=== PATIENT | male | born 1945 | race Caucasian/White ===

== ENCOUNTER 2020-06-17 13:52 | Emergency (ER) | payer OTHER ==
[~2020-06-17] VITALS: Ht 182.9 cm; Wt 99.1 kg
[~2020-06-17 13:52] MED LIST: CARDIZEM CD 18180 MG PO; FOSINOPRIL SODI10 MG PO; INSULIN; LORTAB 5/500 501 TAB PO; METFORMIN HCL1000 MG PO; ZOCOR 20MG20 MG PO
[2020-06-17 14:02] VITALS: TEMP 98.1
[2020-06-17] MEDS ORDERED: LANTUS SOLOS100 U/ML SQ (14:28)
[2020-06-17] MEDS ORDERED: NOVOLOG 100U100 U/M1 SQ ×2 (14:29→14:30)
[2020-06-17] MEDS ORDERED: GLUCOPHAGE850 MG/TAB PO (14:37)
[2020-06-17] MEDS ORDERED: NAPROSYN500 MG PO (14:57)
[2020-06-17] MEDS ORDERED: VTAMINC250TA (14:57)
[2020-06-17] MEDS ORDERED: NATURAL IRON65 MG (14:58)
[2020-06-17] MEDS ORDERED: PRAVACHOL10 MG (14:58)
[2020-06-17] MEDS ORDERED: PRINIVIL2.5 MG (14:59)
[2020-06-17 15:00] VITALS: BP 136/64; PULSE 63
[2020-06-17] MEDS ORDERED: ASPIRIN 81M81 MG/TA2 PO (15:00)
== END 2020-06-17 15:02 | disposition home or self-care (01) ==
LOC: COL.ER 13:52
DX: S61.306A Unspecified open wound of right little finger with damage to nail, initial encounter (principal); E11.9 Type 2 diabetes mellitus without complications; Z88.6 Allergy status to analgesic agent; Z79.4 Long term (current) use of insulin; Z79.82 Long term (current) use of aspirin; W27.4XXA Contact with kitchen utensil, initial encounter

== ENCOUNTER 2021-10-17 15:25 | Emergency (ER) | payer OTHER ==
[~2021-10-17] VITALS: Ht 182.9 cm; Wt 95.0 kg
[~2021-10-17 15:25] MED LIST changes: +ASPIRIN 81M81 MG/TA2 PO; +GLUCOPHAGE850 MG/TAB PO; +LANTUS SOLOS100 U/ML SQ; +NAPROSYN500 MG PO; +NATURAL IRON65 MG; +NOVOLOG 100U100 U/M1 SQ; +PRAVACHOL10 MG; +PRINIVIL2.5 MG; +VTAMINC250TA
[2021-10-17 15:26] VITALS: TEMP 98.3
[2021-10-17 19:32] LABS: BASO # 0.1 K/mm3 (0.0-0.2); BASO % 0.6 % (0.0-2.0); EOS # 0.2 K/mm3 (0.0-0.7); EOS % 1.7 % (0.0-4.0); GRAN % 78.5 % (42.2-75.2); HEMOGLOBIN 11.6 g/dl (13.5-18.0); LYMPH # 1.1 K/mm3 (1.2-3.4); LYMPH % 12.2 % (20.0-51.0); MEAN CELL VOLUME 90 fl (80.0-100.0); MEAN CORPUSCULAR HEMOGLOBIN 30 pg (27-31); MEAN CORPUSCULAR HGB CONC 33 g/dl (33.0-37.0); MEAN PLATELET VOLUME 9.9 fl (7.4-10.4); MONO # 0.6 K/mm3 (0.1-0.6); MONO % 6.8 % (1.7-9.3); PLATELET COUNT 319 K/mm3 (130-400); RED BLOOD COUNT 3.87 M/mm3 (4.20-5.60)
[2021-10-17 19:34] LABS: HEMATOCRIT 34.8 % (42.0-52.0)
[2021-10-17 19:45] LABS: ALBUMIN 3.9 gm/dL (3.4-4.8); BILIRUBIN,TOTAL 0.4 mg/dL (0.2-1.2); CALCIUM 8.9 mg/dL (8.4-10.2); CREATININE, serum 1.07 mg/dL (0.72-1.25); POTASSIUM 4.4 mmol/L (3.5-4.5); TOTAL PROTEIN 7.6 gm/dL (6.2-8.1)
[2021-10-17] MEDS ORDERED: NOVOLOG 100U100 U/M1 SQ (20:00)
[2021-10-17] MEDS ORDERED: TIAZAC120 MG PO (20:06)
[2021-10-17] MEDS ORDERED: NESINA6.25 (20:07)
[2021-10-17 20:09] VITALS: BP 166/86; PULSE 63
== END 2021-10-17 20:21 | disposition short-term general hospital (02) ==
LOC: COL.ER 15:25
PROVIDERS: Physician Assistant
DX: S22.079G Unspecified fracture of T9-T10 vertebra, subsequent encounter for fracture with delayed healing (principal); X58.XXXA Exposure to other specified factors, initial encounter
CPT/HCPCS: J7030

== ENCOUNTER 2022-08-16 08:19 | Day surgery (SDC) | payer OTHER, MEDICARE ==
[~2022-08-16] VITALS: Ht 182.9 cm; Wt 92.0 kg
[~2022-08-16 08:19] MED LIST changes: +NESINA6.25; +TIAZAC120 MG PO
[2022-08-16] MEDS ORDERED: HYGROTON 2525 MG/TAB (08:58)
[2022-08-16] MEDS ORDERED: LANTUS SOLOS100 U/ML SQ (09:02)
[2022-08-16] MEDS ORDERED: VOLTAREN GEL 1%1 TU TP (09:07)
[2022-08-16] MEDS ORDERED: GLUCOPHAGE1000 MG PO (09:09)
[2022-08-16 09:24] VITALS: BP 166/66; PULSE 70; TEMP 97.1
--- NOTE | 2022-08-16 10:07 | NUR ---
Initial visit; Patient thanked Keg Filler for offering prayer for a successful "Procedure" and a rapid and thorough recovery. Especially to be blessed with God's ever presence.
[2022-08-16 10:30] VITALS: BP 86/47; PULSE 66; TEMP 97.1
[2022-08-16 10:45] VITALS: BP 108/52; PULSE 64
[2022-08-16 10:55] VITALS: BP 128/68; PULSE 64
--- NOTE | 2022-08-16 11:10 | NUR ---
1030 RETURNS TO ROOM 2 PER CART. AWAKE, ALERT. RESP UNLABORED. AMBULATES TO RECLINER WITH STANDBY ASSIST. DENIES NAUSEA OR ABD PAIN. CALL LIGHT AT SIDE. 1045 TOLERATES JUICE AND PUDDING WITHOUT NAUSEA 1050 DISCHARGE INSTRUCTIONS REVIEWED. PATIENT VERBALIZES UNDERSTANDING. COPY PROVIDED IN DISCHARGE FOLDER 1055 DR. VELOZ HERE TO VISIT WITH PATIENT 1100 DRESSES SELF
== END 2022-08-16 11:10 | disposition home or self-care (01) ==
LOC: SDCO 08:19
DX: Z12.11 Encounter for screening for malignant neoplasm of colon (principal); K63.5 Polyp of colon; K57.30 Diverticulosis of large intestine without perforation or abscess without bleeding; I73.9 Peripheral vascular disease, unspecified; E11.9 Type 2 diabetes mellitus without complications; Z79.4 Long term (current) use of insulin; Z86.010 Personal history of colon polyps; Z80.0 Family history of malignant neoplasm of digestive organs
CPT/HCPCS: J2704; J7120

== ENCOUNTER 2023-09-16 13:35 | Inpatient (IN) | payer OTHER ==
[~2023-09-16] VITALS: Ht 182.9 cm; Wt 91.7 kg
[~2023-09-16 13:35] MED LIST changes: +GLUCOPHAGE1000 MG PO; +HYGROTON 2525 MG/TAB PO; -NATURAL IRON65 MG; +NATURAL IRON65 MG PO; +NESINA25 PO; -NESINA6.25; +NOVOLOG FLEX100 U/ML SQ; +PRAVACHOL 40MG40 MG PO; -PRAVACHOL10 MG; -PRINIVIL2.5 MG; +PRINIVIL40 MG PO; -TIAZAC120 MG PO; +TIAZAC360 MG PO; +VITAMIN C500 MG PO; +VOLTAREN GEL 1%1 TU TP; -VTAMINC250TA
[2023-09-16 14:03] LABS: BASO # 0.1 K/mm3 (0.0-0.2); BASO % 0.5 % (0.0-2.0); EOS # 0.1 K/mm3 (0.0-0.7); EOS % 0.5 % (0.0-4.0); GRAN # 12.2 K/mm3 (1.4-6.5); GRAN % 83.8 % (42.2-75.2); HEMOGLOBIN 10.4 g/dl (13.5-18.0); LYMPH # 1.2 K/mm3 (1.2-3.4); MEAN CELL VOLUME 95 fl (80.0-100.0); MEAN CORPUSCULAR HEMOGLOBIN 31 pg (27-31); MEAN CORPUSCULAR HGB CONC 33 g/dl (33.0-37.0); MONO % 6.8 % (1.7-9.3); PLATELET COUNT 285 K/mm3 (130-400); RED BLOOD COUNT 3.38 M/mm3 (4.20-5.60); REDCELL DISTRIBUTION WIDTH-CV 13.7 % (11.5-14.5)
[2023-09-16 14:21] LABS: ALBUMIN 3.5 g/dL (3.4-4.8); BILIRUBIN,TOTAL 0.3 mg/dL (0.2-1.2); CALCIUM 8.8 mg/dL (8.4-10.2); CREATININE, serum 1.79 mg/dL (0.72-1.25); MAGNESIUM 1.7 mg/dL (1.6-2.6)
[2023-09-16 14:27] LABS: POTASSIUM 5.9 mEq/L (3.5-4.5)
[2023-09-16 14:42] LABS: TROPONIN-I 0.011 ng/mL (0.00-0.033); TSH w REFLEX 2.865 uIU/mL (0.350-4.940)
[2023-09-16] MEDS ORDERED: LR 1,000 ML IV ONE (15:00)
[2023-09-16 16:21] LABS: URINE APPEARANCE CLOUDY (CLEAR/HAZY); URINE BLOOD NEGATIVE (NEGATIVE); URINE COLOR YELLOW (YELLOW); URINE GLUCOSE NEGATIVE (NEGATIVE); URINE KETONE TRACE (NEGATIVE); URINE NITRATE NEGATIVE (NEGATIVE); URINE PROTEIN(semi-quant) TRACE (NEGATIVE); URINE UROBILINOGEN 0.2 E.U/dL (0.2-1.0)
[2023-09-16] MEDS ORDERED: cefTRIAXone 1 G in Water For Injection,Sterile 20 ML IV ONE (16:30)
[2023-09-16 16:34] LABS: AMORPHOUS CRYSTAL PRESENT (NOT PRESENT); COLLECTION METHOD CLEAN CATCH; MUCOUS PRESENT (NOT PRESENT); SQUAMOUS EPITHELIAL NONE SEEN /hpf (0-10); URINE BACTERIA MODERATE /hpf (NONE SEEN); URINE RBC NONE SEEN /hpf (0-2); URINE WBC 20-50 /hpf (0-2)
[2023-09-16] MEDS ORDERED: Dextrose 50% Water 25 GM/50 ML SYRINGE IV ONE (16:45)
[2023-09-16] MEDS ORDERED: Insulin Regular Human (NovoLIN R/HumuLIN R) IV ONE (16:45)
[2023-09-16] MEDS ORDERED: Patiromer 8.4 G Oral Susp **** subs to Sodium Zirconium Cyclosilicate 10 G Oral Susp PO ONE (16:45)
[2023-09-16] MEDS ORDERED: Sodium Zirconium Cyclosilicate for Oral Susp 10 GM PACKET PO ONE (16:45)
[2023-09-16] MEDS ORDERED: DEBROX OT (16:57)
[2023-09-16 17:00] VITALS: BP_SYST 172
[2023-09-16] MEDS ORDERED: VIAGRA100 M1 PO (17:12)
[2023-09-16] MEDS ORDERED: ASPIRIN E.C. 8181 MG PO (17:28)
[2023-09-16] MEDS ORDERED: metroNIDAZOLE 100 ML IV ONE (17:30)
[2023-09-16 17:59] VITALS: BP 172/71; PULSE 74; TEMP 97.6
[2023-09-16] MEDS ORDERED: cefTRIAXone 1 G in Water For Injection,Sterile 10 ML IV SCH (18:00)
[2023-09-16] MEDS ORDERED: NS 1,000 ML IV SCH (18:00)
[2023-09-16] MEDS ORDERED: Insulin Glargine-ygfn (Lantus) SQ ONE (18:15)
[2023-09-16] MEDS ORDERED: Cefepime 1 G in Water For Injection,Sterile 10 ML IV SCH (18:15)
[2023-09-16] MEDS ORDERED: metroNIDAZOLE 100 ML IV SCH (18:15)
[2023-09-16] MEDS ORDERED: hydrALAZINE 20 MG/ML 1 ML VIAL IV PRN (18:15)
--- NOTE | 2023-09-16 18:33 | NUR ---
PT ARRIVED FROM ER AT 1800. VITALS STABLE. PT DOES NOT HAVE ANY PAIN AT THIS TIME.
[2023-09-16] MEDS ORDERED: Glucagon 1 MG VIAL IM PRN (18:45)
[2023-09-16] MEDS ORDERED: Dextrose (Glucose) 15 GM (4 x 3.75 GM) Chewable TABLET PACK PO PRN (18:45)
[2023-09-16] MEDS ORDERED: Dextrose 50% Water 25 GM/50 ML SYRINGE IV PRN (18:45)
--- NOTE | 2023-09-16 18:50 | NUR ---
PATIENT SITTING ON EDGE OF BED AT THIS TIME WITH TV OFF WITH NO FAMILY PRESENT WITH NO ACUTE DISTRESS NOTED. PATIENT ON ROOM AIR. NS INFUSING INTO RIGHT FOREARM WITH NO COMPLICATIONS NOTED. PATIENT REQUESTED NURSE CALL FOR DINNER TRAY AND VERBALIZED UNDERSTANDING THAT WOULD BE DONE. PATIENT DENIES ANY OTHER NEEDS. PATIENT CARE ASSUMED FROM [facility]. BED IN LOW POSITION WITH WHEELS LOCKED WITH RAILS UP X2 AND CALL LIGHT WITHIN REACH.
[2023-09-16 19:37] VITALS: BP 143/67; PULSE 71; TEMP 97.6
[2023-09-16] MEDS ORDERED: Insulin Lispro (HumaLOG) SQ SCH (20:00)
[2023-09-16 20:25] VITALS: BP_SYST 143
--- NOTE | 2023-09-16 20:25 | NUR ---
PATIENT RESTING IN BED WITH TV ON WITH NO FAMILY PRESENT WITH NO ACUTE DISTRESS NOTED. PATIENT ON ROOM AIR. TELEMETRY INTACT. MEDICATION ADMINISTRATION AND ASSESSMENT COMPLETED AT THIS TIME. PATIENT TOLERATED WELL. YELLOW NON-SKID SOCKS APPLIED. PATIENT DENIES ANY NEEDS. BED IN LOW POSITION WITH WHEELS LOCKED WITH RAILS UP X2 AND CALL LIGHT WITHIN REACH.
[2023-09-16 23:19] VITALS: BP 150/74; PULSE 93; TEMP 98.1
[2023-09-17] VITALS (14 sets, daily range): BP systolic 135–174; BP diastolic 66–80; PULSE 67–89; TEMP 97.5–98.9
[2023-09-17 06:30] LABS: BASO # 0.1 K/mm3 (0.0-0.2); BASO % 0.8 % (0.0-2.0); EOS # 0.2 K/mm3 (0.0-0.7); EOS % 2.2 % (0.0-4.0); GRAN # 5.6 K/mm3 (1.4-6.5); GRAN % 73.3 % (42.2-75.2); HEMOGLOBIN 10.6 g/dl (13.5-18.0); LYMPH # 1.1 K/mm3 (1.2-3.4); MEAN CELL VOLUME 91 fl (80.0-100.0); MEAN CORPUSCULAR HEMOGLOBIN 31 pg (27-31); MEAN CORPUSCULAR HGB CONC 34 g/dl (33.0-37.0); MEAN PLATELET VOLUME 9.8 fl (7.4-10.4); MONO # 0.7 K/mm3 (0.1-0.6); MONO % 9.4 % (1.7-9.3); PLATELET COUNT 268 K/mm3 (130-400); RED BLOOD COUNT 3.46 M/mm3 (4.20-5.60); REDCELL DISTRIBUTION WIDTH-CV 13.5 % (11.5-14.5)
[2023-09-17 06:34] LABS: HEMATOCRIT 31.3 % (42.0-52.0)
[2023-09-17 06:43] LABS: ALBUMIN 3.2 g/dL (3.4-4.8); CALCIUM 8.9 mg/dL (8.4-10.2); CREATININE, serum 0.96 mg/dL (0.72-1.25); MAGNESIUM 1.8 mg/dL (1.6-2.6); PHOSPHOROUS 2.8 mg/dL (2.3-4.7); POTASSIUM 4.5 mEq/L (3.5-4.5)
[2023-09-17] MEDS ORDERED: metroNIDAZOLE 100 ML IV SCH (07:00)
--- NOTE | 2023-09-17 07:30 | NUR ---
Assessment completed. Tele on HR regular. Int intact right forearm infusing NS at 100ml/hr. No c/o pain.
--- NOTE | 2023-09-17 07:55 | NUR ---
Patient BG 69, no symptoms. Pt was NPO after midnight. Now ADA, awaitig for breakfast. [place] juice provided. To recheck glucose in 15min. Cont. monitoring.
[2023-09-17] MEDS ORDERED: Acetaminophen 325 MG TAB PO PRN (08:30)
--- NOTE | 2023-09-17 09:24 | NUR ---
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 Pedrito spoke of his health issues that nearly paralyzed him for life and was saved by quick work of health care workers in several hospitals working together. Pedrito thanked Motor Vehicles Supervisor for looking in on him and offering God's continued blessings for him.
--- NOTE | 2023-09-17 12:38 | NUR ---
farrowing worker met with pt and discussed discharge planning. Pt reports he lives alone in [place]. [facility] [place] [facility]. He obtains medications from [place] with no difficulties. Pt states his nephew, Ashvin [phone] is his contact. Pt reports to be independent with ADLS and uses a cane and FWW. Pt states he would like to complete a DPOA-HC. SW and RN witnessed signature on DPOA-HC. Pt provided copies and originals. Copy in chart. Discharge Plan: home
--- NOTE | 2023-09-17 13:35 | NUR ---
Pt. BP was 172/77 at 12:32. PRN hydrALAZINE administered to lower systolic BP per order. Pt monitored and rechecked pt's sys. bp. Pt's sys. bp is 161/73 15 mins after administration. Verified w/ staff nurse.
--- NOTE | 2023-09-17 16:18 | NUR ---
Patient was provided with printed information about loop recorder placement. Consent signed.
[2023-09-17] MEDS ORDERED: Lisinopril 5 MG TAB PO SCH (16:55)
[2023-09-17] MEDS ORDERED: metroNIDAZOLE 250 MG TAB PO SCH (18:00)
--- NOTE | 2023-09-17 19:30 | NUR ---
Assessment complete. A&Ox3. Denies pain/shortness of breath/nausea. VS stable. Slightly elevated blood pressure-hydralazine given per dr order. Plan of care discussed for this shift to include calling for questions/concerns. Call light in reach. Will monitor.
--- NOTE | 2023-09-17 22:00 | NUR ---
Patient noted to have elevated blood pressure of 170s/70s at HS check. Given hydralazine per order. Rechecked manually by this nurse 148/64. Will continue to monitor.
[2023-09-18] VITALS (8 sets, daily range): BP systolic 134–158; BP diastolic 66–77; PULSE 61–73; TEMP 97.4–98
--- NOTE | 2023-09-18 05:03 | NUR ---
Patient has had an uneventful night. Denied pain/nausea/shortness of breath. Slightly elevated blood pressures-PRn meds given per dr order. INT to right forearm flushes without difficulty. TELE reporting ireeg sinus dysfunction. Currently on RA. Denies current needs. Call light in reach. Will monitor.
[2023-09-18 07:49] LABS: BASO # 0.1 K/mm3 (0.0-0.2); BASO % 0.8 % (0.0-2.0); EOS # 0.2 K/mm3 (0.0-0.7); EOS % 2.5 % (0.0-4.0); GRAN % 75.7 % (42.2-75.2); LYMPH # 0.9 K/mm3 (1.2-3.4); LYMPH % 11.8 % (20.0-51.0); MEAN CELL VOLUME 91 fl (80.0-100.0); MEAN CORPUSCULAR HEMOGLOBIN 31 pg (27-31); MEAN CORPUSCULAR HGB CONC 34 g/dl (33.0-37.0); MEAN PLATELET VOLUME 9.7 fl (7.4-10.4); MONO # 0.7 K/mm3 (0.1-0.6); MONO % 8.8 % (1.7-9.3); PLATELET COUNT 283 K/mm3 (130-400); RED BLOOD COUNT 3.57 M/mm3 (4.20-5.60); REDCELL DISTRIBUTION WIDTH-CV 13.6 % (11.5-14.5)
[2023-09-18 07:51] LABS: HEMATOCRIT 32.3 % (42.0-52.0)
[2023-09-18] MEDS ORDERED: Insulin Lispro (HumaLOG) SQ SCH (08:00)
[2023-09-18 08:11] LABS: ALBUMIN 3.3 g/dL (3.4-4.8); CALCIUM 9.2 mg/dL (8.4-10.2); CREATININE, serum 0.85 mg/dL (0.72-1.25); MAGNESIUM 1.6 mg/dL (1.6-2.6); PHOSPHOROUS 2.5 mg/dL (2.3-4.7); POTASSIUM 4.7 mEq/L (3.5-4.5)
[2023-09-18] MEDS ORDERED: levoFLOXacin 750 MG TAB PO SCH (09:00)
--- NOTE | 2023-09-18 09:32 | NUR ---
Patient alert and oriented x4. Shift assessment complete, patient voices no concerns. NPO status at this time for loop recorder implant today. Denies pain or discomfort. Morning medications all okay to be administered per cardiology, insulin being held due to NPO. Gait steady SBA with walker. Call light within reach, all needs met at this time.
[2023-09-18] MEDS ORDERED: LEVAQUIN 750MG750 M1 PO (14:07)
[2023-09-18] MEDS ORDERED: FLAGYL500 MG PO (14:08)
--- NOTE | 2023-09-18 16:28 | NUR ---
Bedside handoff performed with OLIVER Flores
--- NOTE | 2023-09-18 16:47 | NUR ---
RN contacted [employer] Crane Driver stating patient needed a ride home. Patient has ordered dinner and not ready to leave at this time. DEONTE requested an [employer] for 1800 through the [employer] Portal, requesting picker tender in the Emergency Room Entrance. DEONTE notified RN on above.
--- NOTE | 2023-09-18 17:58 | NUR ---
Loop recorder placed at bedside, patient tolerated well per OLIVER Gamboa. Incision CDI, patient denies pain. Discharge orders received. Discussed incision care and restrictions, new medications, and education packets. Patient verbalized understanding. IV removed to right forearm with no complications. Telemetry off. [employer] provided for patient by DEONTE, patient able to ambulate self. Patient states his car is at home and he will go pick medications up from [facility] when he gets home. Patient voices no concerns at time of discharge. Escorted out via wheelchair by staff to [employer].
--- NOTE | 2023-09-18 18:31 | NUR ---
Patient and PCT left unit around 175 to meet [employer]. PCT called this nurse at 1810 stating that [employer] hasn't arrived. By 183 PCT brought patient back up to floor. supervisor cutting and boning notified, attempting to order new [employer]. Patient waiting in room 307 at this time.
--- NOTE | 2023-09-18 18:55 | NUR ---
New [employer] called for patient by rn house supervisor. PCT took patient down via wheelchair. Patient assisted into [employer] by PCT. Patient gone by 184.
== END 2023-09-18 17:50 | disposition home or self-care (01) | DRG 445 ==
LOC: COL.ER 13:35 → MEDICAL 16:29
PROVIDERS: Emergency Medicine; ADMIT Internal Medicine
DX: K81.0 Acute cholecystitis (principal); I47.10 Supraventricular tachycardia, unspecified; N39.0 Urinary tract infection, site not specified; N17.9 Acute kidney failure, unspecified; K82.8 Other specified diseases of gallbladder; E87.5 Hyperkalemia; D64.9 Anemia, unspecified; E11.9 Type 2 diabetes mellitus without complications; Z79.84 Long term (current) use of oral hypoglycemic drugs; I10 Essential (primary) hypertension; E78.5 Hyperlipidemia, unspecified
CPT/HCPCS: A9270; C1764; J0360; J0692; J0696; J1815; J1836; J7030; J7120